=== PATIENT | female | born 1980 | race Caucasian/White ===

== ENCOUNTER 2024-05-24 14:46 | Outpatient (CLI) | payer BC, SELFPAY | END 2024-05-24 14:47 | disposition home or self-care (01) | LOC: FRMREF 14:58 | PROVIDERS: PCP Physician Assistant Medical; Visit Provider Physician Assistant Medical | DX: E03.9 Hypothyroidism, unspecified (principal); E55.9 Vitamin D deficiency, unspecified | CPT/HCPCS: 82306; 84443 ==

== ENCOUNTER 2024-08-30 07:51 | Outpatient (CLI) | payer BC, SELFPAY ==
--- NOTE | 2024-08-30 08:15 | CRLHL7_ITS ---
For Patients: As a result of the Century Cures Act, medical imaging exams and procedure reports are released immediately into your electronic medical record. You may view this report before your referring provider. If you have questions, please contact your health care provider. INDICATION: Amenorrhea TECHNIQUE: Ultrasound pelvis transabdominal and transvaginal for better assessment or to better visualize the endometrium. Real-time sonographic images with spectral and color Doppler imaging of the ovaries were obtained. COMPARISON: None. FINDINGS: Uterus: 7.6 x 3.3 x 3.7 cm. Normal echotexture of the myometrium. Small intramural fibroid in the anterior uterine fundus measuring 0.7 x 0.5 x 0.7 centimeters (FIGO 4). Endometrium: Transvaginal imaging was performed to better evaluate the endometrium. Endometrial thickness measures 3 mm. No sign of endometrial mass or fluid. Right ovary measures 2.4 x 1.3 x 1.9 centimeters. Left ovary measures 2.3 x 1.6 x 1.7 centimeters. No ovarian or adnexal masses. Normal arterial and venous blood flow is demonstrated in both ovaries. Cul-de-sac: No significant free fluid. IMPRESSION: Normal uterus with intramural fibroid. Normal endometrial thickness measuring 3 millimeters. Dictated by Kayleigh Christopher MD @ 09/01/2024 10:09:34 AM (Electronically Signed)
== END 2024-08-30 07:52 | disposition home or self-care (01) ==
LOC: US 07:51
PROVIDERS: PCP Physician Assistant Medical; Visit Provider Physician Assistant Medical
DX: N91.2 Amenorrhea, unspecified (principal); D25.1 Intramural leiomyoma of uterus
CPT/HCPCS: 76830; 76856; 80053; 80061; 83001; 84439; 84443

== ENCOUNTER 2024-09-23 11:39 | Outpatient (CLI) | payer BC, SELFPAY | END 2024-09-23 11:40 | disposition home or self-care (01) | PROVIDERS: PCP Physician Assistant Medical; Visit Provider Obstetrics & Gynecology | DX: N91.2 Amenorrhea, unspecified (principal) | CPT/HCPCS: 82670; 83001; 84146 ==

== ENCOUNTER 2024-12-01 09:22 | Outpatient (CLI) | payer BC, SELFPAY | END 2024-12-01 09:23 | disposition home or self-care (01) | LOC: NFLDREF 12-03 18:05 | PROVIDERS: PCP Physician Assistant Medical; Referring Provider Physician Assistant Medical; Visit Provider Physician Assistant Medical | DX: E03.9 Hypothyroidism, unspecified (principal) | CPT/HCPCS: 84443 ==